=== PATIENT | female | born 2000 | race Caucasian/White ===

== ENCOUNTER 2021-06-05 18:44 | Emergency (ER) | payer MEDICAID ==
[2021-06-05 19:00] LABS: CHLORIDE,CL 103 mEq/L (98-106); SODIUM,NA 140 mEq/L (136-145)
== END 2021-06-05 20:10 | disposition home or self-care (01) ==
LOC: CC.ED 18:44
DX: O20.9 Hemorrhage in early pregnancy, unspecified (principal); Z88.0 Allergy status to penicillin; Z3A.12 12 weeks gestation of pregnancy
CPT/HCPCS: 36415; 80053; 84702; 85025; 86850; 86900; 86901; 99284

== ENCOUNTER 2021-08-21 13:45 | Emergency (ER) | payer MEDICAID | END 2021-08-21 14:59 | disposition home or self-care (01) | LOC: CC.ED 13:45 | DX: O99.891 Other specified diseases and conditions complicating pregnancy (principal); R10.9 Unspecified abdominal pain; Z3A.22 22 weeks gestation of pregnancy; Z88.0 Allergy status to penicillin; Z79.82 Long term (current) use of aspirin | CPT/HCPCS: 99283 ==